=== PATIENT | female | born 1985 | race Caucasian/White ===

== ENCOUNTER 2023-08-10 14:44 | Inpatient (IN) | payer BC ==
[~2023-08-10] VITALS: Ht 162.6 cm; Wt 90.3 kg
[2023-08-10 14:44] VITALS: BP_SYST 119; PULSE 87; RESP 18; TEMP 97.8; O2SAT 95
[2023-08-10 16:14] LABS: BILIRUBIN,URINE NEGATIVE (NEGATIVE); CLARITY/URINE SL CLOUDY (CLEAR); COLOR,URINE YELLOW (YELLOW); GLUCOSE,URINE NEGATIVE (NEGATIVE); KETONES,URINE 3+ (NEGATIVE); LEUKOCYTE ESTERASE ,URINE NEGATIVE (NEGATIVE); NITRITE, URINE NEGATIVE (NEGATIVE); PROTEIN URINE TRACE (NEGATIVE); UROBILINOGEN,URINE 0.2 (0.2-1.0)
[2023-08-10 16:20] LABS: BLOOD, URINE TRACE (NEGATIVE)
[2023-08-10 16:41] LABS: BACTERIA,URINE FEW /HPF (None Seen); RBC,URINE 0-3 /HPF (0-3); WBC,URINE NONE SEEN /HPF (0-3)
[2023-08-10 16:42] LABS: BASOPHILS % (AUTO) 0.2 % (0.0-2.0); HEMATOCRIT 40.5 % (36-48); HEMOGLOBIN 13.7 g/dL (12.0-16.0); LYMPHOCYTES # (AUTO) 0.6 K/uL (1.0-5.5); MEAN CORPUSCULAR HEMOGLOBIN 29 pg (27-31); MEAN CORPUSCULAR HGB CONC 34 % (32-36); MEAN CORPUSCULAR VOLUME 85 fL (79.0-98.0); MONOCYTES # (AUTO) 0.6 K/uL (0.0-1.0); MONOCYTES % (AUTO) 3.1 % (1.7-9.3); NEUTROPHILS # (AUTO) 17.4 K/uL (1.8-7.7); NEUTROPHILS % (AUTO) 93.7 % (40.0-70.0); PLATELET COUNT (AUTO) 359 K/uL (130-430); RED BLOOD CELL COUNT(AUTO) 4.77 MIL/uL (4.2-6.2); RED CELL DISTRIBUTION WIDTH 14.5 % (9.0-15.0); WHITE BLOOD COUNT (AUTO) 18.6 K/uL (4.8-10.8)
[2023-08-10] MEDS: MORPHINE 2 MG/ML INJ. SYRINGE IVP ONE ×2 (16:44→18:38)
[2023-08-10 16:57] LABS: PROTHROMBIN TIME 10.2 SECS (9.5-12.5); SERUM HCG (QUALITATIVE) NEGATIVE (NEGATIVE)
[2023-08-10 17:02] LABS: CALCIUM 8.9 mg/dL (8.4-11.0); CREATININE 0.74 mg/dL (0.55-1.30); POTASSIUM 3.9 mmol/L (3.5-5.1)
[2023-08-10 17:42] LABS: ALBUMIN 4.3 g/dL (3.4-4.8); BILIRUBIN,DIRECT 0.1 mg/dL (0.0-0.3); TOTAL BILIRUBIN 0.5 mg/dL (0.0-1.0)
[2023-08-10] MEDS: ONDANSETRON HCL 4 MG/2 ML VIAL IVP ONE (18:37)
[2023-08-10] MEDS ORDERED: ACETAMINOPHEN 325 MG TABLET PO PRN (19:00)
[2023-08-10] MEDS ORDERED: ZOLPIDEM TARTRATE 5 MG TABLET PO PRN (19:00)
[2023-08-10] MEDS ORDERED: PIPERACILLIN/TAZOBACTAM 3.375 GM/VIAL (ZOSYN) IV ONE (19:57)
[2023-08-10] MEDS: PIPERACILLIN/TAZOBACTAM 3.375 GM/ D5W 50 ML IV ONE (20:00)
[2023-08-10] MEDS: NACL 0.9% 1,000 ML IV SCH (20:23)
[2023-08-10] MEDS: ONDANSETRON HCL 4 MG/2 ML VIAL IVP PRN (22:52)
[2023-08-10] MEDS: MORPHINE 2 MG/ML INJ. SYRINGE IVP PRN (23:11)
[2023-08-11] VITALS (7 sets, daily range): BP systolic 93–127; PULSE 85–105; RESP 16–18; TEMP 97.4–99.4; O2SAT 94–98
[2023-08-11] MEDS: MORPHINE 2 MG/ML INJ. SYRINGE IVP PRN (02:10)
[2023-08-11] MEDS: PIPERACILLIN/TAZO 3.375/DEX-IS 50 ML IV SCH (02:15)
[2023-08-11] MEDS: PIPERACILLIN/TAZOBACTAM 3.375 GM/VIAL (ZOSYN) IV ONE (02:15)
[2023-08-11] MEDS ORDERED: HYDROmorphone 1 MG/ML INJ. CARTRIDGE IVP PRN ×3 (03:00→12:15)
[2023-08-11] MEDS ORDERED: NALOXONE HCL 0.4 MG/ML AMP (NARCAN) IVP PRN ×2 (03:00→12:15)
[2023-08-11] MEDS: HYDROmorphone 1 MG/ML INJ. CARTRIDGE IVP PRN (03:07)
[2023-08-11 05:24] LABS: BASOPHILS % (AUTO) 0.1 % (0.0-2.0); LYMPHOCYTES # (AUTO) 0.8 K/uL (1.0-5.5); LYMPHOCYTES % (AUTO) 3.9 % (20.5-51.5); MEAN CORPUSCULAR HEMOGLOBIN 29 pg (27-31); MEAN CORPUSCULAR HGB CONC 33 % (32-36); MEAN CORPUSCULAR VOLUME 86 fL (79.0-98.0); MONOCYTES # (AUTO) 0.9 K/uL (0.0-1.0); MONOCYTES % (AUTO) 4.9 % (1.7-9.3); NEUTROPHILS # (AUTO) 17.8 K/uL (1.8-7.7); NEUTROPHILS % (AUTO) 91.1 % (40.0-70.0); PLATELET COUNT (AUTO) 367 K/uL (130-430); RED BLOOD CELL COUNT(AUTO) 4.56 MIL/uL (4.2-6.2); RED CELL DISTRIBUTION WIDTH 14.5 % (9.0-15.0); WHITE BLOOD COUNT (AUTO) 19.5 K/uL (4.8-10.8)
[2023-08-11 05:44] LABS: CALCIUM 8.4 mg/dL (8.4-11.0); CREATININE 0.74 mg/dL (0.55-1.30); POTASSIUM 3.4 mmol/L (3.5-5.1)
[2023-08-11] MEDS: KCL 20 mEq in 100 mL (PREMIX) 100 ML IV ONE (09:48)
[2023-08-11] MEDS: ACETAMINOPHEN 325 MG TABLET PO PRN (09:49)
[2023-08-11] MEDS ORDERED: LR 1,000 ML IV.SOLN IV ONE (11:34)
[2023-08-11] MEDS ORDERED: PROPOFOL 200MG/ 20ML VIAL (DIPRIVAN) IV ONE (11:34)
[2023-08-11] MEDS ORDERED: LIDOCAINE 1% 10 MG/ML, 20 ML MDV ONE (11:34)
[2023-08-11] MEDS ORDERED: DEXAMETHASONE SOD PHOSPHATE 4 MG/ML VIAL ONE (11:34)
[2023-08-11] MEDS ORDERED: GLYCOPYRROLATE 0.2 MG/ML VIAL ONE (11:34)
[2023-08-11] MEDS ORDERED: ONDANSETRON HCL 4 MG/2 ML VIAL ONE (11:34)
[2023-08-11] MEDS ORDERED: SUCCINYLCHOLINE CHLORIDE 20 MG/ML(QUELICIN) ONE (11:34)
[2023-08-11] MEDS ORDERED: ROCURONIUM BROMIDE 10 MG/ML (ZEMURON) ONE (11:34)
[2023-08-11] MEDS ORDERED: SEVOFLURANE 15 MIN GAS INH ONE (11:34)
[2023-08-11] MEDS ORDERED: NEOSTIGMINE METHYLSULFATE 1 MG/ML, 10 ML VIAL ONE (11:34)
[2023-08-11] MEDS: fentaNYL CITRATE/PF 100 MCG/2 ML AMP ONE (11:36)
[2023-08-11] MEDS: MIDAZOLAM HCL 5 MG/5 ML VIAL ONE (11:36)
[2023-08-11] MEDS: MIDAZOLAM HCL 2 MG/2 ML VIAL (VERSED) ONE (11:41)
[2023-08-11] MEDS ORDERED: ONDANSETRON HCL 4 MG/2 ML VIAL IVP PRN ×2 (11:45→12:15)
[2023-08-11] MEDS ORDERED: LR 1,000 ML IV ONE (12:15)
[2023-08-11] MEDS ORDERED: fentaNYL CITRATE/PF 100 MCG/2 ML AMP IVP PRN ×2 (12:15)
[2023-08-11] MEDS: ONDANSETRON HCL 4 MG/2 ML VIAL ONE (13:15)
[2023-08-11] MEDS: HYDROmorphone 1 MG/ML INJ. CARTRIDGE ONE (13:15)
[2023-08-12] VITALS: BP_SYST 129; PULSE 80; RESP 20; TEMP 98.8; O2SAT 97
[2023-08-12 05:58] LABS: BASOPHILS % (AUTO) 0.1 % (0.0-2.0); HEMATOCRIT 31.4 % (36-48); HEMOGLOBIN 10.5 g/dL (12.0-16.0); LYMPHOCYTES # (AUTO) 1.2 K/uL (1.0-5.5); LYMPHOCYTES % (AUTO) 6.5 % (20.5-51.5); MEAN CORPUSCULAR HEMOGLOBIN 29 pg (27-31); MEAN CORPUSCULAR HGB CONC 34 % (32-36); MEAN CORPUSCULAR VOLUME 85 fL (79.0-98.0); MONOCYTES # (AUTO) 1.2 K/uL (0.0-1.0); MONOCYTES % (AUTO) 6.3 % (1.7-9.3); NEUTROPHILS % (AUTO) 87.1 % (40.0-70.0); PLATELET COUNT (AUTO) 298 K/uL (130-430); RED BLOOD CELL COUNT(AUTO) 3.68 MIL/uL (4.2-6.2); RED CELL DISTRIBUTION WIDTH 14.6 % (9.0-15.0); WHITE BLOOD COUNT (AUTO) 18.4 K/uL (4.8-10.8)
[2023-08-12 06:58] LABS: CREATININE 0.69 mg/dL (0.55-1.30); POTASSIUM 3.5 mmol/L (3.5-5.1)
[2023-08-12 08:00] VITALS: O2SAT 98
[2023-08-12 11:09] VITALS: BP_SYST 106; PULSE 88; RESP 16; TEMP 98.3; O2SAT 95
[2023-08-12 15:05] VITALS: BP_SYST 106; PULSE 98; RESP 16; TEMP 98.4; O2SAT 98
[2023-08-12 20:30] VITALS: O2SAT 98
[2023-08-12 21:00] VITALS: BP_SYST 106; PULSE 96; RESP 16; TEMP 98.4; O2SAT 98
[2023-08-12] MEDS: HYDROcodone/ACETAMIN 5-325 MG TAB (NORCO/ VICODIN) PO PRN (21:44)
[2023-08-13 08:00] VITALS: BP_SYST 113; PULSE 84; RESP 18; TEMP 98.8; O2SAT 98
[2023-08-13 08:16] LABS: BASOPHILS % (AUTO) 0.4 % (0.0-2.0); EOSINOPHILS % (AUTO) 0.4 % (0.0-4.0); HEMATOCRIT 29.6 % (36-48); HEMOGLOBIN 10.1 g/dL (12.0-16.0); LYMPHOCYTES # (AUTO) 1.3 K/uL (1.0-5.5); LYMPHOCYTES % (AUTO) 16.9 % (20.5-51.5); MEAN CORPUSCULAR HEMOGLOBIN 29 pg (27-31); MEAN CORPUSCULAR HGB CONC 34 % (32-36); MEAN CORPUSCULAR VOLUME 86 fL (79.0-98.0); MONOCYTES # (AUTO) 0.6 K/uL (0.0-1.0); MONOCYTES % (AUTO) 8.2 % (1.7-9.3); NEUTROPHILS # (AUTO) 5.6 K/uL (1.8-7.7); NEUTROPHILS % (AUTO) 74.1 % (40.0-70.0); PLATELET COUNT (AUTO) 264 K/uL (130-430); RED BLOOD CELL COUNT(AUTO) 3.43 MIL/uL (4.2-6.2); RED CELL DISTRIBUTION WIDTH 14.5 % (9.0-15.0); WHITE BLOOD COUNT (AUTO) 7.5 K/uL (4.8-10.8)
[2023-08-13 08:46] LABS: CALCIUM 7.7 mg/dL (8.4-11.0); CREATININE 0.73 mg/dL (0.55-1.30); POTASSIUM 3.1 mmol/L (3.5-5.1)
[2023-08-13] MEDS ORDERED: LEVO750T64 PO (09:22)
[2023-08-13] MEDS ORDERED: METR-154 PO (09:22)
[2023-08-13] MEDS ORDERED: DOCU-144 PO (09:22)
[2023-08-13] MEDS: POTASSIUM CHLORIDE 20 MEQ TABLET.ER PO ONE (10:47)
[2023-08-13 12:05] VITALS: BP_SYST 113; PULSE 84; RESP 18; TEMP 98.8; O2SAT 98
== END 2023-08-13 13:45 | disposition home or self-care (01) | DRG 854 ==
LOC: SED 14:44 → SMU 18:53
PROVIDERS: ADMIT Internal Medicine; ATTEND Internal Medicine
PROC: 0DTJ0ZZ Resection of Appendix, Open Approach (ICD-10-PCS; principal; 2023-08-11 11:34)
DX: A41.9 Sepsis, unspecified organism (principal); K35.80 Unspecified acute appendicitis; E87.6 Hypokalemia
CPT/HCPCS: 36415; 71045; 80048; 80076; 81000; 81001; 81015; 83605; 84703; 85025; 85610; 85730; 87040; 88304; 93005; 99285; C1727; J0330; J1100; J1170; J2001; J2250; J2270; J2405; J2543; J2704; J2710; J3010; J3465; J3480; J3490; J7120